=== PATIENT | male | born 1965 | race Caucasian/White ===

== ENCOUNTER 2017-04-05 10:07 | Inpatient (IN) ==
[2017-04-05] MEDS ORDERED: 0.9 % Sodium Chloride 1,000 ML IVC ONE (10:22)
[2017-04-05] MEDS ORDERED: *HR* Promethazine 25 MG/ML VIAL IVP ONE (10:22)
[2017-04-05 10:55] LABS: Basophils % 0.7 %; Eosinophils # 0.2 K/mcL (0.0-0.6); Eosinophils % 3.4 %; Hematocrit 33.5 % (37.5-50.1); Immature Granulocytes % 0.2 % (0-4); Lymphocytes # 1.6 K/mcL (0.6-4.6); Lymphocytes % 27.5 %; Mean Corpuscular HGB Conc 29.9 g/dL (31.6-35.5); Mean Corpuscular Volume 80.3 fL (83.0-100.0); Mean Platelet Volume 11.5 fL (9.4-12.4); Monocytes # 0.4 K/mcL (0.0-1.3); Monocytes % 6.5 %; Neutrophils # 3.5 K/mcL (1.6-8.9); Platelet Count 109 K/mcL (140-400); Red Blood Count 4.17 M/mcL (4.19-5.50); Segmented Neutrophils % 61.7 %
--- NOTE | 2017-04-05 10:59 | Emergency Department Note ---
Disposition Clinical Impression: Distal radius fracture, left, Ulna styloid fracture, closed, Right rib fracture , Hematemesis with nausea Disposition: Admitted As Inpatient Condition: Fair [facility] Provider[facility] - Forms: ED Satisfaction Letter Time of Disposition: 13:32 Nausea/Vomiting/Diarrhea HPI - General Chief complaint: ED Nausea/Vomiting/Diarrhea Stated complaint: Vomiting/Wrist fracture Time Seen by Provider: 04/05/17 10:10 Source: patient, EMS Mode of arrival: EMS Limitations: no limitations Nursing Notes Reviewed: Yes Vital Signs Reviewed: Yes - History of Present Illness HPI Narrative: Patient presents to the ED via EMS as a transfer from the [place] with the chief complaint of hematemesis and a left wrist fracture. Patient reportedly woke up this morning at 6 AM and felt very nauseated, had 2 episodes of vomiting with the first episode he states was "full of dark red blood." States the second episode of vomiting was "black clots." Denies any associated abdominal pain, diarrhea, melena or hematochezia. He does state that he fell about a week ago and has a known left wrist fracture and rib fracture on the right. States that he is supposed to be seeing orthopedics, but no one has contacted him yet. After independent medical record review was noted that he saw one of our physician assistants here last week for this problem of his wrist. Images were uploaded into the radiology system from the [place] and states that there is an intra-articular distal radius and ulnar styloid fracture. Patient was given analgesics and placed in a splint and told to follow up with orthopedics. Patient has not called orthopedics as instructed and was under the assumption that someone would be calling for him. States his pain in his wrist is fairly well under control. He states that he just does not feel well right now is very nauseated. Denies any previous history of GI bleeds. No history of coronary artery disease. Not on any blood thinners or antiplatelet medications. - Related Data Home Medications Medication Instructions Recorded Confirmed Acetaminophen/Butalbital/Caffe 1 each PO Q6HR PRN 04/05/17 04/05/17 [Fioricet] Albuterol Sulfate [Albuterol 2 puff IH Q6H PRN 04/05/17 04/05/17 Inhaler] Buprenorphine [Butrans] 1 patch TP QWEEK 04/05/17 04/05/17 Carvedilol 3.125 mg PO BID 04/05/17 04/05/17 Docusate Sodium [Dok] 200 mg PO HS 04/05/17 04/05/17 Ferrous Gluconate 324 mg PO BID 04/05/17 04/05/17 Pregabalin [Lyrica] 200 mg PO TID 04/05/17 04/05/17 Sennosides [Senokot] 8.6 mg PO DAILY 04/05/17 04/05/17 Tizanidine HCl 4 mg PO HS 04/05/17 04/05/17 Allergies Allergy/AdvReac Type Severity Reaction Status Date / Time amitriptyline Allergy See Verified 04/05/17 10:18 Comments chlorpromazine Allergy See Verified 04/05/17 10:18 Comments All systems ED: reviewed and negative except as stated. Constitutional: Denies: fever Cardiovascular: Reports: other (rib pain ). Denies: chest pain Respiratory: Denies: cough Gastrointestinal: Reports: nausea, vomiting, hematemesis. Denies: abdominal pain, melena, hematochezia Musculoskeletal: Denies: back pain Neurological: Denies: headache Endocrine: Reports: fatigue Past Medical History - Past Medical History Attestation: Yes The following information was validated with the patient. Source: patient Medical history: Reports: diabetes, hepatitis, hypertension, thyroid disease Psychiatric history: Reports: depression, other - Social History Smoking Status: Current every day smoker Smokeless Tobacco Status: No Alcohol use: Reports: none Drug use: Reports: none Physical Exam - General Limitations: no limitations General appearance: alert, in no apparent distress - Head Head exam: atraumatic, normocephalic, normal inspection - Eye Eye exam: Present: normal appearance, PERRL, EOMI - ENT ENT exam: normal exam, normal oropharynx, mucous membranes moist - Neck Neck exam: Present: normal inspection, full ROM, trachea midline - Chest Chest inspection: Present: symmetric chest wall rise, tenderness. Absent: normal inspection Course Course Narrative: Patient presenting with a one-day history of hematemesis. Patient sent over from the [place] initial hemoglobin this morning was 10.8. We will test Hemoccult stool recheck labs, chest x-ray and likely admit for endoscopy. Patient also has a left distal radius and ulnar fracture that will likely need surgical intervention. Patient was under the impression that someone else was supposed to be setting up an appointment for him and after reviewing his medical record. It seems that he was supposed to make his appointment. Does appear that the patient is incapable of taking care of himself. - Reevaluation(s) Reevaluation #1: spoke with Dr. Ojeda. Will evaluate patient. Patient admitted to hospitalist service. Patient with previous h/o GIB per record but patient denies. Unsure if patient is able to care for himself any longer. Patient vitals remain stable and has had no further episodes of hematemesis. Time: 13:31 Vital Signs Temperature 97.9 F 04/05/17 10:11 Pulse Rate 64 04/05/17 10:11 Respiratory Rate 18 04/05/17 10:11 Blood Pressure 119/67 04/05/17 10:11 O2 Sat by Pulse Oximetry 97 04/05/17 10:11 Temperature 97.9 F 04/05/17 10:11 Pulse Rate 64 04/05/17 10:11 Respiratory Rate 18 04/05/17 10:11 Blood Pressure 119/67 04/05/17 10:11 O2 Sat by Pulse Oximetry 97 04/05/17 10:11 Oxygen Delivery Oxygen Delivery Room Air Nausea/Vomiting/Diarrhea - Medical Records Medical records reviewed: Yes I reviewed the patient's medical records. - Lab Data Lab results reviewed: Yes I reviewed the patient's lab results. Result diagrams: 04/05/17 10:46 04/05/17 10:46 Lab Results 04/05/17 04/05/17 04/05/17 Range/Units 10:46 10:46 10:46 WBC 5.7 (4.3-11.1) K/mcL RBC 4.17 L (4.19-5.50) M/mcL Hgb 10.0 L (12.9-16.9) g/dL Hct 33.5 L (37.5-50.1) % MCV 80.3 L (83.0-100.0) fL MCH 24.0 L (28.0-33.3) pg MCHC 29.9 L (31.6-35.5) g/dL RDW 21.0 H (11.5-14.5) % Plt Count 109 L (140-400) K/mcL MPV 11.5 (9.4-12.4) fL Immature Gran % 0.2 (0-4) % Seg Neutrophils % 61.7 % Lymphocytes % 27.5 % Monocytes % 6.5 % Eosinophils % 3.4 % Basophils % 0.7 % Neutrophils # 3.5 (1.6-8.9) K/mcL Lymphocytes # 1.6 (0.6-4.6) K/mcL Monocytes # 0.4 (0.0-1.3) K/mcL Eosinophils # 0.2 (0.0-0.6) K/mcL Basophils # 0.0 (0.0-0.2) K/mcL Immature Plt Fraction 10.0 H (1.1-6.1) % PT 15.0 H (9.4-12.1) Seconds INR 1.4 APTT 36.0 (26.0-36.0) Seconds Sodium 137 (136-145) mEq/L Potassium 4.3 (3.5-4.5) mEq/L Chloride 106 (98-109) mEq/L Carbon Dioxide 25 (19-29) mEq/L BUN 14 (8-26) mg/dL Creatinine 0.75 (0.72-1.25) mg/dL Est GFR ( Amer) > 60 (> 60) Est GFR (Non-Af Amer) > 60 (> 60) BUN/Creatinine Ratio 19 (6-26) Glucose 206 H (70-99) mg/dL Calculated Osmolality 290 (280-300) Calcium 8.4 L (8.6-10.8) mg/dL Total Bilirubin 0.8 (0.2-1.2) mg/dL AST 52 H (5-34) Units/L ALT 32 (0-55) Units/L Alkaline Phosphatase 182 H (38-126) Units/L Troponin I (0-0.03) ng/mL Serum Total Protein 7.1 (6.0-8.3) g/dL Albumin 2.8 L (3.5-5.0) g/dL Globulin 4.3 H (2.4-3.5) g/dL Albumin/Globulin Ratio 0.7 L (1.1-2.2) Stool Occult Blood (Negative) Blood Type Antibody Screen 04/05/17 04/05/17 04/05/17 Range/Units 10:46 10:46 Unknown WBC (4.3-11.1) K/mcL RBC (4.19-5.50) M/mcL Hgb (12.9-16.9) g/dL Hct (37.5-50.1) % MCV (83.0-100.0) fL MCH (28.0-33.3) pg MCHC (31.6-35.5) g/dL RDW (11.5-14.5) % Plt Count (140-400) K/mcL MPV (9.4-12.4) fL Immature Gran % (0-4) % Seg Neutrophils % % Lymphocytes % % Monocytes % % Eosinophils % % Basophils % % Neutrophils # (1.6-8.9) K/mcL Lymphocytes # (0.6-4.6) K/mcL Monocytes # (0.0-1.3) K/mcL Eosinophils # (0.0-0.6) K/mcL Basophils # (0.0-0.2) K/mcL Immature Plt Fraction (1.1-6.1) % PT (9.4-12.1) Seconds INR APTT (26.0-36.0) Seconds Sodium (136-145) mEq/L Potassium (3.5-4.5) mEq/L Chloride (98-109) mEq/L Carbon Dioxide (19-29) mEq/L BUN (8-26) mg/dL Creatinine (0.72-1.25) mg/dL Est GFR ( Amer) (> 60) Est GFR (Non-Af Amer) (> 60) BUN/Creatinine Ratio (6-26) Glucose (70-99) mg/dL Calculated Osmolality (280-300) Calcium (8.6-10.8) mg/dL Total Bilirubin (0.2-1.2) mg/dL AST (5-34) Units/L ALT (0-55) Units/L Alkaline Phosphatase (38-126) Units/L Troponin I 0.00 (0-0.03) ng/mL Serum Total Protein (6.0-8.3) g/dL Albumin (3.5-5.0) g/dL Globulin (2.4-3.5) g/dL Albumin/Globulin Ratio (1.1-2.2) Stool Occult Blood Negative (Negative) Blood Type O POSITIVE Antibody Screen NEGATIVE - Radiology Data Radiology results reviewed: Yes I reviewed the patient's radiology results. Chest X-Ray 04/05/17 10:21 IMPRESSION: No evidence for acute cardiopulmonary process. D/ / 04/05/2017 10:45:02 Chris Arshad MD / [facility] Interpreting Provider: Chris Arshad MD Wrist X-Ray 04/05/17 10:21 IMPRESSION: Interval placement of splint/cast material. Within this limitation no significant change in alignment noted to previously identified distal radius fracture and ulnar styloid fracture. No new acute abnormalities are seen. D/ / 04/05/2017 10:45:21 Chris Arshad MD / [facility] Interpreting Provider: Chris Arshad MD - EKG Data EKG attestation: Yes I reviewed and interpreted this EKG. EKG results narrative: Sinus rhythm, rate 63, WI interval 146, QRS 109, QTC 446, left axis deviation, no acute ischemic changes
[2017-04-05 11:00] LABS: INR 1.4
--- NOTE | 2017-04-05 11:02 | Emergency Department Note ---
Disposition Clinical Impression: Distal radius fracture, left, Ulna styloid fracture, closed, Right rib fracture , Hematemesis with nausea Disposition: Admitted As Inpatient Condition: Fair General Adult HPI - General Chief complaint: ED Nausea/Vomiting/Diarrhea Stated complaint: Vomiting/Wrist fracture Time Seen by Provider: 04/05/17 10:10 Source: patient, EMS Mode of arrival: EMS Limitations: no limitations - History of Present Illness Pain Scale: 6 - Related Data Home Medications Medication Instructions Recorded Confirmed Acetaminophen/Butalbital/Caffe 1 each PO Q6HR PRN 04/05/17 04/05/17 [Fioricet] Albuterol Sulfate [Albuterol 2 puff IH Q6H PRN 04/05/17 04/05/17 Inhaler] Buprenorphine [Butrans] 1 patch TP QWEEK 04/05/17 04/05/17 Carvedilol 3.125 mg PO BID 04/05/17 04/05/17 Docusate Sodium [Dok] 200 mg PO HS 04/05/17 04/05/17 Ferrous Gluconate 324 mg PO BID 04/05/17 04/05/17 Pregabalin [Lyrica] 200 mg PO TID 04/05/17 04/05/17 Sennosides [Senokot] 8.6 mg PO DAILY 04/05/17 04/05/17 Tizanidine HCl 4 mg PO HS 04/05/17 04/05/17 Allergies Allergy/AdvReac Type Severity Reaction Status Date / Time amitriptyline Allergy See Verified 04/05/17 10:18 Comments chlorpromazine Allergy See Verified 04/05/17 10:18 Comments Constitutional: Denies: fever Cardiovascular: Reports: other (rib pain ). Denies: chest pain Respiratory: Denies: cough Gastrointestinal: Reports: nausea, vomiting, hematemesis. Denies: abdominal pain, melena, hematochezia Musculoskeletal: Denies: back pain Neurological: Denies: headache Endocrine: Reports: fatigue Past Medical History - Past Medical History Medical history: Reports: diabetes, hepatitis, hypertension, thyroid disease Psychiatric history: Reports: depression, other - Social History Smoking Status: Current every day smoker Smokeless Tobacco Status: No Alcohol use: Reports: none Drug use: Reports: none Physical Exam - General Limitations: no limitations General appearance: alert, in no apparent distress Course - Reevaluation(s) Reevaluation #1: I examined this patient and my medical decision-making was reviewed with the Resident Physician. I agree with the documented findings, disposition and treatment plan as described except to the extent set forth below. Patient presents to the ED with a chief complaint of vomiting blood. Patient states she has been nauseated since this morning. He has had a few episodes of vomiting blood. He presented to the urgent care at the [place] and was transferred here. No episodes since transfer. Patient also has a left wrist fracture. He was evaluated here week ago and is not secured orthopedics follow-up for this yet. Patient does admit to a history of hepatitis C. He denies alcohol consumption. Examination shows an awake alert no acute distress. He has some mild epigastric tenderness. He is not guarding. He has a prefabricated foam splint on his left wrist. Plan. The prefabricated splint was removed and replaced with a custom Ortho-Glass splint. GI bleed workup. Likely admission and will discuss with orthopedics. Patient was stable him limit of 10. No vomiting of blood in department. He is well-appearing. We will admit for endoscopy and orthopedics consult. Time: 11:05 Vital Signs Temperature 97.9 F 04/05/17 10:11 Pulse Rate 64 04/05/17 10:11 Respiratory Rate 18 04/05/17 10:11 Blood Pressure 119/67 04/05/17 10:11 O2 Sat by Pulse Oximetry 97 04/05/17 10:11 Temperature 97.9 F 04/05/17 14:27 Pulse Rate 67 04/05/17 14:27 Respiratory Rate 16 04/05/17 14:27 Blood Pressure 102/64 04/05/17 14:27 O2 Sat by Pulse Oximetry 97 04/05/17 14:27 Oxygen Delivery Oxygen Delivery Room Air Procedures - Orthopedic Splinting/Casting Injury #1 Side: left Upper Extremity Injury Location: wrist Upper Extremity Immobilizer: sugar tong splint Additional Comments: Custom Ortho-Glass sugar tong splint placed by myself. Neurovascularly intact following splint placement. Medical Decision Making - Lab Data Result diagrams: 04/05/17 16:32 04/05/17 10:46 Lab Results 04/05/17 04/05/17 04/05/17 Range/Units 10:46 10:46 10:46 WBC 5.7 (4.3-11.1) K/mcL RBC 4.17 L (4.19-5.50) M/mcL Hgb 10.0 L (12.9-16.9) g/dL Hct 33.5 L (37.5-50.1) % MCV 80.3 L (83.0-100.0) fL MCH 24.0 L (28.0-33.3) pg MCHC 29.9 L (31.6-35.5) g/dL RDW 21.0 H (11.5-14.5) % Plt Count 109 L (140-400) K/mcL MPV 11.5 (9.4-12.4) fL Immature Gran % 0.2 (0-4) % Seg Neutrophils % 61.7 % Lymphocytes % 27.5 % Monocytes % 6.5 % Eosinophils % 3.4 % Basophils % 0.7 % Neutrophils # 3.5 (1.6-8.9) K/mcL Lymphocytes # 1.6 (0.6-4.6) K/mcL Monocytes # 0.4 (0.0-1.3) K/mcL Eosinophils # 0.2 (0.0-0.6) K/mcL Basophils # 0.0 (0.0-0.2) K/mcL Immature Plt Fraction 10.0 H (1.1-6.1) % PT 15.0 H (9.4-12.1) Seconds INR 1.4 APTT 36.0 (26.0-36.0) Seconds Sodium 137 (136-145) mEq/L Potassium 4.3 (3.5-4.5) mEq/L Chloride 106 (98-109) mEq/L Carbon Dioxide 25 (19-29) mEq/L BUN 14 (8-26) mg/dL Creatinine 0.75 (0.72-1.25) mg/dL Est GFR ( Amer) > 60 (> 60) Est GFR (Non-Af Amer) > 60 (> 60) BUN/Creatinine Ratio 19 (6-26) Glucose 206 H (70-99) mg/dL POC Glucose (58-89) Calculated Osmolality 290 (280-300) Calcium 8.4 L (8.6-10.8) mg/dL Total Bilirubin 0.8 (0.2-1.2) mg/dL AST 52 H (5-34) Units/L ALT 32 (0-55) Units/L Alkaline Phosphatase 182 H (38-126) Units/L Troponin I (0-0.03) ng/mL Serum Total Protein 7.1 (6.0-8.3) g/dL Albumin 2.8 L (3.5-5.0) g/dL Globulin 4.3 H (2.4-3.5) g/dL Albumin/Globulin Ratio 0.7 L (1.1-2.2) Blood Type Antibody Screen 04/05/17 04/05/17 04/05/17 Range/Units 10:46 10:46 16:32 WBC (4.3-11.1) K/mcL RBC (4.19-5.50) M/mcL Hgb 8.5 L D (12.9-16.9) g/dL Hct 28.0 L (37.5-50.1) % MCV (83.0-100.0) fL MCH (28.0-33.3) pg MCHC (31.6-35.5) g/dL RDW (11.5-14.5) % Plt Count (140-400) K/mcL MPV (9.4-12.4) fL Immature Gran % (0-4) % Seg Neutrophils % % Lymphocytes % % Monocytes % % Eosinophils % % Basophils % % Neutrophils # (1.6-8.9) K/mcL Lymphocytes # (0.6-4.6) K/mcL Monocytes # (0.0-1.3) K/mcL Eosinophils # (0.0-0.6) K/mcL Basophils # (0.0-0.2) K/mcL Immature Plt Fraction (1.1-6.1) % PT (9.4-12.1) Seconds INR APTT (26.0-36.0) Seconds Sodium (136-145) mEq/L Potassium (3.5-4.5) mEq/L Chloride (98-109) mEq/L Carbon Dioxide (19-29) mEq/L BUN (8-26) mg/dL Creatinine (0.72-1.25) mg/dL Est GFR ( Amer) (> 60) Est GFR (Non-Af Amer) (> 60) BUN/Creatinine Ratio (6-26) Glucose (70-99) mg/dL POC Glucose (58-89) Calculated Osmolality (280-300) Calcium (8.6-10.8) mg/dL Total Bilirubin (0.2-1.2) mg/dL AST (5-34) Units/L ALT (0-55) Units/L Alkaline Phosphatase (38-126) Units/L Troponin I 0.00 (0-0.03) ng/mL Serum Total Protein (6.0-8.3) g/dL Albumin (3.5-5.0) g/dL Globulin (2.4-3.5) g/dL Albumin/Globulin Ratio (1.1-2.2) Blood Type O POSITIVE Antibody Screen NEGATIVE 04/05/17 Range/Units 17:24 WBC (4.3-11.1) K/mcL RBC (4.19-5.50) M/mcL Hgb (12.9-16.9) g/dL Hct (37.5-50.1) % MCV (83.0-100.0) fL MCH (28.0-33.3) pg MCHC (31.6-35.5) g/dL RDW (11.5-14.5) % Plt Count (140-400) K/mcL MPV (9.4-12.4) fL Immature Gran % (0-4) % Seg Neutrophils % % Lymphocytes % % Monocytes % % Eosinophils % % Basophils % % Neutrophils # (1.6-8.9) K/mcL Lymphocytes # (0.6-4.6) K/mcL Monocytes # (0.0-1.3) K/mcL Eosinophils # (0.0-0.6) K/mcL Basophils # (0.0-0.2) K/mcL Immature Plt Fraction (1.1-6.1) % PT (9.4-12.1) Seconds INR APTT (26.0-36.0) Seconds Sodium (136-145) mEq/L Potassium (3.5-4.5) mEq/L Chloride (98-109) mEq/L Carbon Dioxide (19-29) mEq/L BUN (8-26) mg/dL Creatinine (0.72-1.25) mg/dL Est GFR ( Amer) (> 60) Est GFR (Non-Af Amer) (> 60) BUN/Creatinine Ratio (6-26) Glucose (70-99) mg/dL POC Glucose 146 H (58-89) Calculated Osmolality (280-300) Calcium (8.6-10.8) mg/dL Total Bilirubin (0.2-1.2) mg/dL AST (5-34) Units/L ALT (0-55) Units/L Alkaline Phosphatase (38-126) Units/L Troponin I (0-0.03) ng/mL Serum Total Protein (6.0-8.3) g/dL Albumin (3.5-5.0) g/dL Globulin (2.4-3.5) g/dL Albumin/Globulin Ratio (1.1-2.2) Blood Type Antibody Screen
[2017-04-05 11:10] LABS: Alanine Aminotransferase 32 Units/L (0-55); Albumin 2.8 g/dL (3.5-5.0); Albumin/Globulin Ratio 0.7 (1.1-2.2); Alkaline Phosphatase 182 Units/L (38-126); Aspartate Amino Transferase 52 Units/L (5-34); BUN/Creatinine Ratio 19 (6-26); Bilirubin,Total 0.8 mg/dL (0.2-1.2); Blood Urea Nitrogen 14 mg/dL (8-26); Calcium 8.4 mg/dL (8.6-10.8); Carbon Dioxide 25 mEq/L (19-29); Chloride 106 mEq/L (98-109); Globulin 4.3 g/dL (2.4-3.5); Glucose 206 mg/dL (70-99); Osmolality,Calculated 290 (280-300); Potassium 4.3 mEq/L (3.5-4.5); Sodium 137 mEq/L (136-145); Total Protein 7.1 g/dL (6.0-8.3); eGFR For African Americans > 60 (> 60); eGFR For Non-African Americans > 60 (> 60)
[2017-04-05] MEDS ORDERED: *HR* HYDROmorphone (PF) 1 MG/ML SYRINGE IVP ONE (11:47)
[2017-04-05] MEDS ORDERED: Pantoprazole 40 MG VIAL IVP ONE (13:12)
[2017-04-05] MEDS ORDERED: *HR* Dextrose 50 % in Water (Syg) 50 ML SYRINGE IVP PRN (15:45)
[2017-04-05] MEDS ORDERED: D5% in Water 1,000 ML IVC PRN (15:45)
[2017-04-05] MEDS ORDERED: Dextrose Gel 15 GM PO PRN ×2 (15:45)
[2017-04-05] MEDS ORDERED: Naloxone 0.4 MG/ML INJ IVP PRN (15:45)
[2017-04-05] MEDS ORDERED: Acetaminophen 325 MG TABLET PO PRN (15:45)
[2017-04-05] MEDS: Ondansetron 4 MG/2 ML VIAL IVP PRN (16:36)
[2017-04-05] MEDS: 0.9 % Sodium Chloride 1,000 ML IVC SCH (16:36)
[2017-04-05] MEDS: *HR* Morphine 2 MG/ML SYRINGE IVP PRN ×2 (16:37→21:15)
[2017-04-05] MEDS: Pantoprazole 40 MG VIAL IVP SCH (16:37)
[2017-04-05 16:49] LABS: Hemoglobin 8.5 g/dL (12.9-16.9)
--- NOTE | 2017-04-05 16:55 | Event Note ---
Date of Encounter: 04/05/17 Time of Encounter: 16:47 I have independently seen and examined this patient on 04/05/17, plan of care discussed with the resident physician and the patient. [facility]MR here [facility] 51 M with hx of alcohol abuse, Chronic Hep C, Liver cirrhosis, DM, HTN, chronic pain syndrome Recent trauma with communited L radial and fiibular fracture as well as 7th rib fracture He is transferred here for episodes of melena for 3 days and one episode of coffee round emesis. He is denying BRBPR at this time. He is hemodynamically stable. He denies chest pain/SOB/Abdominal pain. He reports EGD/Colonosocpy done in [facility] one year ago, with "normal" results. Denies NSAID use. Physical exam: VSS. BP WNL, no tachycardia, AAOX3, moves all extremities equally. chest is CTAB, abdomen is not tender. HS S1, S2 , only, no m/g/r. Extremities with no edema, Skin/Integument: No petechiae Labs and Imaging reviewed: Hb stable at 10, normal WBC, chronic thrombocytopenia at baseline, hypoalbuminemia, mild transaminitis, INR 1.4. [facility] Assessment Suspected UGIB from possible portal HTN/GAstri or esophageal varices. Hemodynamically stable, Keep NPO, protonix and Octreotide IV, Surgery /GI consulted by ER already. MOnitor Hb q6H. Transfuse prn. Uncontrolled DM: Check A1C. FS q6h, low dose sliding scale HTN: Hold BP meds for now Chronic anemia: Hb at baseline Chronic thrombocytopenia: PLT at baseline hx of alcohol abuse: patient denies at this time, monitor for withdrawal Left wrist fracture: ortho eval Rib frature: Incentive spirometry/supportive care Minimize use of narcotics Rest of details as in resident physician's documentation
--- NOTE | 2017-04-05 17:02 | Orthopedic Consult Note ---
Date of Encounter: 04/05/17 Time of Encounter: 17:01 Assessment and Plan (1) Distal radius fracture, left Current Visit: Yes Status: Acute Patient to go into left wrist splint and leave in place except to cleanse skin daily with soap and water. No wrist motion. Avoid lifting anything greater than 5 lbs with left hand. Wrist splint applied. Pain control per hospitalist. Patient to see Sports Medicine at [facility] after discharge. Thank you for this consultation. Qualifiers: Encounter type: initial encounter Fracture type: closed Fracture morphology: other intra-articular Qualified Code(s): S52.572A - Other intraarticular fracture of lower end of left radius, initial encounter for closed fracture (2) Ulna styloid fracture, closed Current Visit: Yes Status: Acute Qualifiers: Encounter type: initial encounter Fracture alignment: nondisplaced Laterality: left Qualified Code(s): S52.615A - Nondisplaced fracture of left ulna styloid process, initial encounter for closed fracture History of Present Illness Chief complaint: left wrist fracture HPI: Mr. Foss is a 51 year old male presented to [place] ED for nasuea and hematemesis. Patient was seen in ED last week for left wrist pain and was diagnosed with left wrist fracture. Patient was under assumption appt would be made for him however he had been instructed to contact our office for outpatient follow up. On exam patient laying in bed. Admits to feeling nauseated. Patient ill appearing. Left forearm in orthoglass splint. Left hand and forearm ecchymotic and swollen. patient has full ROM left hand. Wrist swollen without obvious defect and tender to palpation. Elbow ROM intact. Fingers noted to be clubbed and pale with slow cap refill. Otherwise neurovascularly intact and sensate. HISTORY: ORDERING SYSTEM PROVIDED HISTORY: fall, intra-articular fx FINDINGS: Interval placement of splint/cast material to the left hand/wrist as compared to prior exam. This limits evaluation. No significant change in alignment to previously identified comminuted fracture of distal radius or to ulnar styloid fracture. No new fractures are seen. No dislocations. No suspicious focal bony lesions. No bony erosions or bony destructive changes. Carpal alignment is maintained. No significant degenerative changes identified. No significant soft tissue swelling. Resolution of previously noted soft tissue swelling. No radiopaque foreign bodies or soft tissue gas. XR/XR wrist complete 3V LT IMPRESSION: Interval placement of splint/cast material. Within this limitation no significant change in alignment noted to previously identified distal radius fracture and ulnar styloid fracture. No new acute abnormalities are seen. D/ / 04/05/2017 10:45:21 Chris Arshad MD / mal Interpreting Provider: Chris Arshad MD Case discussed with Dr. Lucio. Patient to go into left wrist splint and leave in place except to cleanse skin daily with soap and water. No wrist motion. Avoid lifting anything greater than 5 lbs with left hand. Wrist splint applied. Pain control per hospitalist. Patient to see Sports Medicine at [facility] after discharge. Thank you for this consultation. Past Med Surg Social Fam HX - Past Medical History Medical history: diabetes, hepatitis, hypertension Psychiatric history: depression, other - Past Surgical History Surgical History: appendectomy - Social History Smoking Status: Current every day smoker Smokeless Tobacco Status: No Alcohol use: none Drug use: none - Family History Father Living Status: Still Living Hx Family Cancer: Yes Mother Adopted: No Living Status: Still Living Hx Family Cardiac Disorders: Yes Medications and Allergies Acetaminophen/Butalbital/Caffe [Fioricet] 1 each PO Q6HR PRN 04/05/17 [History] Albuterol Sulfate [Albuterol Inhaler] 2 puff IH Q6H PRN 04/05/17 [History] Buprenorphine [Butrans] 1 patch TP QWEEK 04/05/17 [History] Carvedilol 3.125 mg PO BID 04/05/17 [History] Docusate Sodium [Dok] 200 mg PO HS 04/05/17 [History] Ferrous Gluconate 324 mg PO BID 04/05/17 [History] Pregabalin [Lyrica] 200 mg PO TID 04/05/17 [History] Sennosides [Senokot] 8.6 mg PO DAILY 04/05/17 [History] Tizanidine HCl 4 mg PO HS 04/05/17 [History] 3 Allergy/AdvReac Type Severity Reaction Status Date / Time amitriptyline Allergy See Verified 04/05/17 10:18 Comments chlorpromazine Allergy See Verified 04/05/17 10:18 Comments All Systems Reviewed: A 10-system review of systems was performed and is negative for pertinent findings except as documented above in the HPI. Physical Exam - Constitutional Vitals: Temp Pulse Resp BP Pulse Ox 97.9 F 67 16 102/64 97 04/05/17 14:27 04/05/17 14:27 04/05/17 14:27 04/05/17 14:27 04/05/17 14:27 Results - Labs Result Diagrams: 04/05/17 16:32 04/05/17 10:46 Labs: Abnormal lab results RBC 4.17 M/mcL (4.19-5.50) L 04/05/17 10:46 Hgb 8.5 g/dL (12.9-16.9) L D 04/05/17 16:32 Hct 28.0 % (37.5-50.1) L 04/05/17 16:32 MCV 80.3 fL (83.0-100.0) L 04/05/17 10:46 MCH 24.0 pg (28.0-33.3) L 04/05/17 10:46 MCHC 29.9 g/dL (31.6-35.5) L 04/05/17 10:46 RDW 21.0 % (11.5-14.5) H 04/05/17 10:46 Plt Count 109 K/mcL (140-400) L 04/05/17 10:46 Immature Plt Fraction 10.0 % (1.1-6.1) H 04/05/17 10:46 PT 15.0 Seconds (9.4-12.1) H 04/05/17 10:46 Glucose 206 mg/dL (70-99) H 04/05/17 10:46 Calcium 8.4 mg/dL (8.6-10.8) L 04/05/17 10:46 AST 52 Units/L (5-34) H 04/05/17 10:46 Alkaline Phosphatase 182 Units/L (38-126) H 04/05/17 10:46 Albumin 2.8 g/dL (3.5-5.0) L 04/05/17 10:46 Globulin 4.3 g/dL (2.4-3.5) H 04/05/17 10:46 Albumin/Globulin Ratio 0.7 (1.1-2.2) L 04/05/17 10:46 H & H 04/05/17 Range/Units 16:32 Hgb 8.5 L D (12.9-16.9) g/dL Hct 28.0 L (37.5-50.1) % All other labs normal. Consult Discharge Plan - Plan [facility] Provider[facility] - Pepito David MD [Partnered Physician] - 04/10/17 3:20 pm
--- NOTE | 2017-04-05 17:19 | Internal Med History&Physical ---
Date of Encounter: 04/05/17 Time of Encounter: 03:45 Assessment and Plan (1) Upper GI bleed Current visit: Yes Status: Suspected Suspected upper GI bleed. [facility]x [facility]. Initial labs show 1.4 INR, 104 platelets, LFT derangement Presence of Hepatitis C, hematemesis and pt reported hemorrhoids--suspicious for cirrhosis/portal hypertension/varices. Hemodynamically stable. Q6Hr H&H AM INR US Liver Surgery consulted; NPO, EGD planned, octreotide prep. (2) Hematemesis with nausea Current visit: Yes Status: Acute As above, workup suspected upper GI bleed. AM ferretin, AM iron. (3) Chronic blood loss anemia Current visit: Yes Status: Acute As above, workup upper GI bleed. (4) Hepatitis C Current visit: Yes Status: Acute Albumin 2.8; INR 1.4, 104 platelets US Liver Qualifiers: Viral hepatitis chronicity: chronic Hepatic coma status: without hepatic coma Qualified Code(s): B18.2 - Chronic viral hepatitis C (5) Thrombocytopenia Current visit: Yes Status: Acute Monitor INR. (6) Exq-nnxbtsu-dwmtqsqmy diabetes mellitus without complications Current visit: Yes Status: Acute Sliding scale; A1c ordered. 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 Ortho consulted. Qualifiers: Encounter type: initial encounter Fracture type: closed Fracture morphology: other intra-articular Qualified Code(s): S52.572A - Other intraarticular fracture of lower end of left radius, initial encounter for closed fracture (8) Ulna styloid fracture, closed Current visit: Yes Status: Acute Qualifiers: Encounter type: initial encounter Fracture alignment: nondisplaced Laterality: left Qualified Code(s): S52.615A - Nondisplaced fracture of left ulna styloid process, initial encounter for closed fracture (9) Right rib fracture Current visit: Yes Status: Acute Qualifiers: Encounter type: initial encounter Rib fracture type: single rib Fracture type: closed Qualified Code(s): S22.31XA - Fracture of one rib, right side, initial encounter for closed fracture (10) DVT prophylaxis Current visit: Yes Status: Acute Intermittent pneumatic compression ordered. Internal Medicine - H&P: HPI Chief complaint: "nausea with bloody vomit x1" Admitted From: Emergency Dept Plans for Post Hospital Care: Home History of present illness: Mr. Foss is a 51 year old male with significant past medical history of [facility] abuse ([facility]), hepatitis c, presenting with nausea and one episode of hematemesis this morning. Patient reports vomitting 1/8th cup of bloody emesis this morning. Continues to be nauseated but no recurrence of bloody emesis. The pt confirms recurrent bloody stool, black stool, constipation, hemorrhoids. In addition to today's emesis, patient has a 1 week onset of left arm fracture secondary to fall while "walking across the a street with construction." ROS: endorses bloody vomit x1, fatigue, L arm pain, rib pain. denies abdominal pain, alcohol use, or RUQ pain. Past Med Surg Social Fam HX - Past Medical History Medical history: diabetes, hepatitis, hypertension Psychiatric history: depression, other - Past Surgical History Surgical History: appendectomy - Social History Smoking Status: Current every day smoker Smokeless Tobacco Status: No Alcohol use: none Drug use: none - Family History Father Living Status: Still Living Hx Family Cancer: Yes Mother Adopted: No Living Status: Still Living Hx Family Cardiac Disorders: Yes Internal Medicine - H&P: Meds Acetaminophen/Butalbital/Caffe [Fioricet] 1 each PO Q6HR PRN 04/05/17 [History] Albuterol Sulfate [Albuterol Inhaler] 2 puff IH Q6H PRN 04/05/17 [History] Buprenorphine [Butrans] 1 patch TP QWEEK 04/05/17 [History] Carvedilol 3.125 mg PO BID 04/05/17 [History] Docusate Sodium [Dok] 200 mg PO HS 04/05/17 [History] Ferrous Gluconate 324 mg PO BID 04/05/17 [History] Pregabalin [Lyrica] 200 mg PO TID 04/05/17 [History] Sennosides [Senokot] 8.6 mg PO DAILY 04/05/17 [History] Tizanidine HCl 4 mg PO HS 04/05/17 [History] 3 Allergy/AdvReac Type Severity Reaction Status Date / Time amitriptyline Allergy See Verified 04/05/17 10:18 Comments chlorpromazine Allergy See Verified 04/05/17 10:18 Comments All Systems PM: A 10-system review of systems was performed and is negative for pertinent findings except as documented above in the HPI. - Constitutional Constitutional: fatigue, weight loss - EENT Nose, mouth and throat: no epistaxis, no mouth pain - Cardiovascular Cardiovascular ROS IM: no chest pain, no lightheadedness, no syncope - Respiratory Respiratory: no cough, no pain with cough - Gastrointestinal Gastrointestinal: change in stool character, constipation, melena, nausea - Genitourinary Genitourinary ROS male: no hematuria - Musculoskeletal Musculoskeletal ROS IM: limited range of motion (L forearm) - Neurological Neurological ROS: no frequent falls - Constitutional Vitals: Temp Pulse Resp BP Pulse Ox 97.9 F 67 16 102/64 97 04/05/17 14:27 04/05/17 14:27 04/05/17 14:27 04/05/17 14:27 04/05/17 14:27 General appearance: Present: A&O X 3 (answers questions, though drowsy, answers regarding alcohol use do not match past medical history) - Head Head exam: Present: atraumatic - ENT ENT exam: Present: mucous membranes moist - Respiratory Respiratory exam: Present: chest wall tenderness, CTAB Additional comments: mild right sided chest wall pain on R arm abduction - Cardiovascular Cardiovascular exam: Present: RRR, +S1, +S2 - GI/Abdominal GI/Abdominal exam: Present: normal bowel sounds, no peritoneal signs. Absent: guarding, mass, tenderness - Extremities Exam Additional comments: L arm cast, distal extremity neurologically intact, normal capillary refill Internal Med - H&P Results - Labs CBC & Chem 7: 04/05/17 16:32 04/05/17 10:46 Labs: Short CBC 04/05/17 Range/Units 16:32 Hgb 8.5 L D (12.9-16.9) g/dL Hct 28.0 L (37.5-50.1) %
[2017-04-05] MEDS: Octreotide 400 MCG in 0.9 % Sodium Chloride 100 ML IVC SCH (17:26)
[2017-04-05] MEDS: Insulin LISPRO 300 UNITS/3 ML VIAL SQ SCH (17:33)
--- NOTE | 2017-04-05 17:54 | General Surgery Consult Note ---
Date of Encounter: 04/06/17 Time of Encounter: 17:27 History of Present Illness Consult date: 04/05/17 Requesting physician: Jass Gonzalez History of present illness: 51-year-old transferred from [facility] after presenting there with complaints of nausea and vomiting that initiated this morning. The patient describes bloody emesis though the nurse attending to the patient described clear emesis. The patient was transferred to [facility] for further evaluation and care of GI hemorrhage. The patient is a somewhat vague historian, unable to give significant details. Much of the information regarding the past medical history, medications and condition are derived from the records provided by the [facility]. Past medical history: Hepatitis C, iron deficiency anemia, long-standing history of alcoholism but his last alcohol intake is reported 17 years ago; cirrhosis; chronic pain syndrome; non compliant behavior; open fracture distal left radius and ulnar (03/29/17; drug-induced mood disorder; type 2 diabetes without reported complication Allergies: Elavil and Thorazine Medications: Acetaminophen 325 mg/butalbital 50 mg/caffeine 40 mg by mouth as directed for headache Albuterol 90 g per actuation 2 puffs 4 times a day Betamethasone dipropionate 0.05% cream to be applied topically to affected area 3 times a day Buprenorphine 15 g/ hour patch 1 patch every 7 days Acetaminophen 300 mg with codeine 30 mg 1 by mouth every 4 hours when necessary pain Diphenhydramine 25 mg by mouth twice a day when necessary for pruritus docusate 100 mg 2 capsules daily at bedtime ferrous gluconate 325 mg 1 by mouth twice a day Omeprazole 20 mg by mouth daily Ondasetron 8 mg 6 hours as needed for nausea Penicillin VK 500 mg 2 tablets 4 times daily for 7 days (not certain when prescribed) Polyethylene glycol 1 capful daily for bowel movements pregabalin 200 mg by mouth 3 times a day Sennosides 8.6 mg daily Tizanidine 2 mg by mouth daily 1 by mouth daily at bedtime for 2 weeks, then 2 tabs daily daily at bedtime for 5 weeks, then 3 tablets daily at bedtime for another 5 weeks; then 4 tablets daily at bedtime Buspirone 10 mg by mouth twice a day for anxiety Venlafaxine 75 mg 1 by mouth daily Carvidilol 6.25 mg half tab twice a day Social History: Long-standing history of tobacco use; remote history of alcoholism (patient indicates last alcoholic intake 17 years ago); history of multi-substance abuse, opioid dependence On exam: [place] resting comforably in his hospital bed, skin: warm, no obvious jaundice Lungs: clear to auscultation Cardiac: Regular rate, no appreciable murmurs; right chest wall tenderness ( history of right seventh rib fracture) Abdomen: Soft, nontender; no obvious masses; was not able to detect any hepatosplenomegaly. Extremities: Short arm cast left arm (history of distal radius and ulnar fracture related to a fall 03/29/17) Rectal exam was not repeated Laboratories: Hemoglobin [facility] 03/29/17 10.9 with hematocrit 35.6. H&H from [facility] this morning 10.8/35.2 Hemoglobin on arrival at [facility] 10.0/hematocrit 33.5. Repeat H&H at 1608.5/28.0 Platelet count diminished at 109,000; PT 15.0, INR 1.4 Electrolytes, BUN, creatinine within an acceptable range; AST 52, ALT 32, alkaline phosphatase 182. Total bilirubin 0.8 Stool Hemoccult blood drawn per [facility] ED - NEGATIVE Impression: 51-year-old referred to [facility] for further evaluation and treatment of new onset hematemesis. Patient is a poor historian but medical records indicate the patient is an increased risk for variceal hemorrhage. I am the provider "covering" GI bleeds but am not able to manage Variceal hemorrhage. The hematemesis may be due to a [place]ilda[place] tear related to the described emesis this morning versus gastritis, peptic ulcer disease. The patient describes black stool / melena for several days but stool is Hemoccult negative per testing at [facility]. I have discussed this patient's care with Dr Solo, the Hospitalist providing medical care for this patient EGD can be considered but if variceal hemorrhage encountered or exacerbated by the endoscopic procedure, we do not have the capability to control them. Past Med Surg Social Fam HX - Past Medical History Medical history: diabetes, hepatitis, hypertension Psychiatric history: depression, other - Past Surgical History Surgical History: appendectomy - Social History Smoking Status: Current every day smoker Smokeless Tobacco Status: No Alcohol use: none Drug use: none - Family History Father Living Status: Still Living Hx Family Cancer: Yes Mother Adopted: No Living Status: Still Living Hx Family Cardiac Disorders: Yes Medications and Allergies Acetaminophen/Butalbital/Caffe [Fioricet] 1 each PO Q6HR PRN 04/05/17 [History] Albuterol Sulfate [Albuterol Inhaler] 2 puff IH Q6H PRN 04/05/17 [History] Buprenorphine [Butrans] 1 patch TP QWEEK 04/05/17 [History] Carvedilol 3.125 mg PO BID 04/05/17 [History] Docusate Sodium [Dok] 200 mg PO HS 04/05/17 [History] Ferrous Gluconate 324 mg PO BID 04/05/17 [History] Pregabalin [Lyrica] 200 mg PO TID 04/05/17 [History] Sennosides [Senokot] 8.6 mg PO DAILY 04/05/17 [History] Tizanidine HCl 4 mg PO HS 04/05/17 [History] 3 Allergy/AdvReac Type Severity Reaction Status Date / Time amitriptyline Allergy See Verified 04/05/17 10:18 Comments chlorpromazine Allergy See Verified 04/05/17 10:18 Comments Review of Systems All systems PM: A 10-system review of systems was performed and is negative for pertinent findings except as documented above in the HPI. General Surgery Exam Initial Vital Signs Temp Pulse Resp BP Pulse Ox 97.9 F 64 18 119/67 97 04/05/17 10:11 04/05/17 10:11 04/05/17 10:11 04/05/17 10:11 04/05/17 10:11 Exam Initial Vital Signs Temp Pulse Resp BP Pulse Ox 97.9 F 64 18 119/67 97 04/05/17 10:11 04/05/17 10:11 04/05/17 10:11 04/05/17 10:11 04/05/17 10:11 Results - Labs 04/06/17 05:18 04/06/17 05:18 Abnormal lab results RBC 4.17 M/mcL (4.19-5.50) L 04/05/17 10:46 Hgb 8.5 g/dL (12.9-16.9) L D 04/05/17 16:32 Hct 28.0 % (37.5-50.1) L 04/05/17 16:32 MCV 80.3 fL (83.0-100.0) L 04/05/17 10:46 MCH 24.0 pg (28.0-33.3) L 04/05/17 10:46 MCHC 29.9 g/dL (31.6-35.5) L 04/05/17 10:46 RDW 21.0 % (11.5-14.5) H 04/05/17 10:46 Plt Count 109 K/mcL (140-400) L 04/05/17 10:46 Immature Plt Fraction 10.0 % (1.1-6.1) H 04/05/17 10:46 PT 15.0 Seconds (9.4-12.1) H 04/05/17 10:46 Glucose 206 mg/dL (70-99) H 04/05/17 10:46 POC Glucose 146 (58-89) H 04/05/17 17:24 Calcium 8.4 mg/dL (8.6-10.8) L 04/05/17 10:46 AST 52 Units/L (5-34) H 04/05/17 10:46 Alkaline Phosphatase 182 Units/L (38-126) H 04/05/17 10:46 Albumin 2.8 g/dL (3.5-5.0) L 04/05/17 10:46 Globulin 4.3 g/dL (2.4-3.5) H 04/05/17 10:46 Albumin/Globulin Ratio 0.7 (1.1-2.2) L 04/05/17 10:46 All other labs normal. Consult Discharge Plan - Plan Referrals: Pepito David MD [Partnered Physician] - 04/10/17 3:20 pm [facility]Primary Care Provider[facility] -
--- NOTE | 2017-04-05 18:22 | Electrocardiograph Report ---
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
[2017-04-05] MEDS: Pregabalin 50 MG CAPSULE PO SCH (20:04)
[2017-04-05] MEDS ORDERED: tiZANidine 4 MG TABLET PO SCH (21:00)
[2017-04-05 22:42] LABS: Hematocrit 29.8 % (37.5-50.1)
[2017-04-06] MEDS: Insulin LISPRO 300 UNITS/3 ML VIAL SQ SCH ×3 (00:39→12:19)
[2017-04-06] MEDS: *HR* Morphine 2 MG/ML SYRINGE IVP PRN ×4 (01:27→14:07)
[2017-04-06] MEDS: Ondansetron 4 MG/2 ML VIAL IVP PRN (01:29)
[2017-04-06] MEDS: 0.9 % Sodium Chloride 1,000 ML IVC SCH ×2 (04:12→14:08)
[2017-04-06] MEDS: Pantoprazole 40 MG VIAL IVP SCH (04:50)
[2017-04-06] MEDS ORDERED: Metoclopramide 10 MG/2 ML VIAL IVP STA (06:21)
[2017-04-06 06:35] LABS: Basophils % 0.8 %; Eosinophils # 0.2 K/mcL (0.0-0.6); Eosinophils % 4.3 %; Hematocrit 28.4 % (37.5-50.1); Hemoglobin 8.6 g/dL (12.9-16.9); Immature Granulocytes % 0.2 % (0-4); Lymphocytes % 39.8 %; Mean Corpuscular HGB Conc 30.3 g/dL (31.6-35.5); Mean Corpuscular Hemoglobin 24.1 pg (28.0-33.3); Mean Corpuscular Volume 79.6 fL (83.0-100.0); Mean Platelet Volume 11.8 fL (9.4-12.4); Monocytes # 0.4 K/mcL (0.0-1.3); Monocytes % 6.9 %; Neutrophils # 2.4 K/mcL (1.6-8.9); Nucleated Red Blood Cells 0.4 /100 WBC (0); Platelet Count 101 K/mcL (140-400); Red Blood Count 3.57 M/mcL (4.19-5.50)
[2017-04-06 06:45] LABS: INR 1.3; Prothrombin Time 14.6 Seconds (9.4-12.1)
[2017-04-06 06:55] LABS: BUN/Creatinine Ratio 21 (6-26); Blood Urea Nitrogen 15 mg/dL (8-26); Calcium 7.9 mg/dL (8.6-10.8); Carbon Dioxide 25 mEq/L (19-29); Chloride 108 mEq/L (98-109); Glucose 172 mg/dL (70-99); Osmolality,Calculated 295 (280-300); Potassium 4.3 mEq/L (3.5-4.5); Sodium 140 mEq/L (136-145); eGFR For African Americans > 60 (> 60); eGFR For Non-African Americans > 60 (> 60)
[2017-04-06 07:45] LABS: % Iron Saturation 23 % (20-55); Iron 88 mcg/dL (65-175); Transferrin 271 mg/dL (174-364)
[2017-04-06 08:05] LABS: Ferritin 24 ng/ml (22-275)
[2017-04-06] MEDS: Pregabalin 50 MG CAPSULE PO SCH ×2 (09:25→15:16)
[2017-04-06] MEDS: Octreotide 400 MCG in 0.9 % Sodium Chloride 100 ML IVC SCH (09:34)
[2017-04-06 11:52] VITALS: BP 101/63
[2017-04-06 16:05] LABS: Hematocrit 29.4 % (37.5-50.1); Hemoglobin 8.9 g/dL (12.9-16.9)
--- NOTE | 2017-04-06 19:31 | Discharge Summary ---
Date of Encounter: 04/07/17 Time of Encounter: 11:00 - Discharge Diagnosis (1) Upper GI bleed Priority: Primary Status: Acute (2) Chronic blood loss anemia Priority: Secondary Status: Acute - Discharge Medications Home Medications: Acetaminophen/Butalbital/Caffe [Fioricet] 1 each PO Q6HR PRN 04/05/17 [History] Albuterol Sulfate [Albuterol Inhaler] 2 puff IH Q6H PRN 04/05/17 [History] Buprenorphine [Butrans] 1 patch TP QWEEK 04/05/17 [History] Carvedilol 3.125 mg PO BID 04/05/17 [History] Docusate Sodium [Dok] 200 mg PO HS 04/05/17 [History] Ferrous Gluconate 324 mg PO BID 04/05/17 [History] Pregabalin [Lyrica] 200 mg PO TID 04/05/17 [History] Sennosides [Senokot] 8.6 mg PO DAILY 04/05/17 [History] Tizanidine HCl 4 mg PO HS 04/05/17 [History] Allergies/Adverse Reactions: 3 Allergy/AdvReac Type Severity Reaction Status Date / Time amitriptyline Allergy See Verified 04/05/17 10:18 Comments chlorpromazine Allergy See Verified 04/05/17 10:18 Comments Date of admission: 04/05/17 18:31 Primary care physician: PCP PA - Patient Status Disposition: Left Against Medical Advice Condition: Fair - Discharge Instructions Follow Up With: Pepito David MD [Partnered Physician] - 04/10/17 3:20 pm [facility],PCP [Primary Care Provider] - Hospital course: Patient is a 51-year-old male with past medical history significant for alcohol liver cirrhosis and chronic anemia who presents with multiple fractures in addition to upper GI bleed. Patient was placed on octreotide/PPI infusion made nothing by mouth to control GI bleed and Gen. surgery following. In addition patient was monitored for acute on chronic anemia with a hemoglobin of 8.6 and slightly hypotensive. Patient pain was controlled with IV morphine for fractures. Patient was upset because he wanted to eat and stronger pain meds. Discussed in detail with the patient about the risk and benefits of the above and patient verbalized understanding. - Time Spent with Patient Total time spent providing and/or coordinating discharge services: Less than 30 minutes - Constitutional Vitals: Temp Pulse Resp BP Pulse Ox 97.9 F 67 16 101/63 92 04/06/17 11:47 04/06/17 11:47 04/06/17 11:47 04/06/17 11:47 04/06/17 11:47 General appearance: Present: A&O X 3 (answers questions, though drowsy, answers regarding alcohol use do not match past medical history) - Respiratory Respiratory exam: Present: CTAB. Absent: accessory muscle use, rales, rhonchi, wheezes - Cardiovascular Cardiovascular exam: Present: RRR, +S1, +S2. Absent: diastolic murmur, gallop, rubs, systolic murmur - VTE Documentation of Mechanical Device: Intermittent pneumatic compression device
== END 2017-04-06 17:06 | disposition left against medical advice (07) | DRG 378 ==
LOC: EMEROO 10:07 → 3NENU 10:07
PROVIDERS: ADMIT Hospitalist; ATTEND Internal Medicine